=== PATIENT | male | born 1970 | race Two or more races ===

== ENCOUNTER 2023-10-26 01:10 | Emergency (ER) | payer OTHER ==
[~2023-10-26] VITALS: Ht 180.3 cm; Wt 93.0 kg
[2023-10-26] MEDS ORDERED: NIFEDIPINE 10 MG CAPSULE PO STA (02:13)
[2023-10-26] MEDS ORDERED: AVAPRO150 MG PO (04:39)
== END 2023-10-26 05:32 ==
LOC: ER 01:11
DX: I10 Essential (primary) hypertension (principal)